=== PATIENT | female | born 1980 | race Caucasian/White ===

== ENCOUNTER → 2018-08-15 | Outpatient (CLI) | payer MEDICAID | END | disposition home or self-care (01) | LOC: RAD 12:16 | DX: R76.11 Nonspecific reaction to tuberculin skin test without active tuberculosis (principal) | CPT/HCPCS: 71045 ==

== ENCOUNTER 2018-12-14 07:51 | Inpatient (IN) | payer MEDICAID ==
[2018-12-14 08:51] LABS: ADD MAN DIFF? NO
[2018-12-14 08:55] LABS: WHITE BLOOD COUNT 7.7 10^3/ul (4.8-10.8)
[2018-12-14 08:56] LABS: BASOPHILS % 0.5 % (0.0-2.0); EOSINOPHILS % 0.5 % (0.0-7.0); HEMATOCRIT 33.5 % (37.0-47.0); LYMPHOCYTES # 1.3 10^3/ul (0.8-2.9); LYMPHOCYTES % 17.2 % (15.0-51.0); MEAN CORPUSCULAR HEMOGLOBIN 31.7 pg (29.0-33.0); MEAN CORPUSCULAR HGB CONC 32.8 g/dl (32.0-37.0); MEAN CORPUSCULAR VOLUME 96.5 fl (82.0-101.0); MEAN PLATELET VOLUME 9.8 fl (7.4-10.4); MONOCYTE # 0.6 10^3/ul (0.3-0.9); MONOCYTES % 7.2 % (0.0-11.0); NEUTROPHIL # 5.6 10^3/ul (1.6-7.5); NEUTROPHILS % 73.3 % (39.0-77.0); PLATELET COUNT 199 10^3/UL (140-415); RED BLOOD COUNT 3.47 10^6/ul (4.20-5.40); RED CELL DISTRIBUTION WIDTH 12.7 % (11.5-14.5)
[2018-12-14 09:26] LABS: RUPTURE FETAL MEMBRANES POSITIVE (NEGATIVE)
[2018-12-14 09:34] LABS: ADD UMIC YES; UR ASCORBIC ACID NEGATIVE (NEGATIVE); UR BILIRUBIN (Dip) NEGATIVE (NEGATIVE); UR BLOOD (Dip) NEGATIVE (NEGATIVE); UR CLARITY CLEAR (CLEAR); UR COLOR YELLOW (YELLOW); UR GLUCOSE (Dip) NEGATIVE (NEGATIVE); UR KETONES (Dip) NEGATIVE (NEGATIVE); UR LEUKOCYTE ESTERASE (Dip) TRACE Leu/ul (NEGATIVE); UR NITRITE (Dip) NEGATIVE (NEGATIVE); UR RBC 0 /HPF (0-5); UR SPECIFIC GRAVITY (Dip) 1.009 (1.003-1.030); UR TOTAL PROTEIN (Dip) NEGATIVE (NEGATIVE); UR UROBILINOGEN (Dip) NEGATIVE (NEGATIVE); UR WBC 3 /HPF (0-5)
[2018-12-14] MEDS ORDERED: MAGNESIUM SULFATE 4 GM/100 ML 100 ML (11:12)
[2018-12-14] MEDS: MAGNESIUM SULFATE 4 GM/100 ML 100 ML IV (11:34)
[2018-12-14] MEDS: LACTATED RINGER'S 1,000 ML IV (11:35)
[2018-12-14] MEDS: AMPICILLIN 2 GM/NS (PMX) 100 ML IV (11:54)
[2018-12-14] MEDS: MAGNESIUM SULFATE 20 GM/500 ML 500 ML IV ×2 (12:02→22:07)
[2018-12-14 12:21] LABS: ALANINE AMINOTRANSFERASE 32 IU/L (13-69); ALBUMIN 3.3 g/dl (3.3-4.9); ALBUMIN/GLOBULIN RATIO 1.06; ALKALINE PHOSPHATASE 143 IU/L (42-121); ANION GAP 3 (5-13); ASPARTATE AMINO TRANSFERASE 33 IU/L (15-46); BILIRUBIN,INDIRECT 0.5 mg/dl (0-1.1); BILIRUBIN,TOTAL 0.5 mg/dl (0.2-1.3); BLOOD UREA NITROGEN 8 mg/dl (7-20); CALCIUM 8.6 mg/dl (8.4-10.2); CARBON DIOXIDE 27 mmol/L (21-31); CHLORIDE 105 mmol/L (97-110); CREATININE 0.46 mg/dl (0.44-1.00); Estimated GFR > 60 mL/min (>60); GLUCOSE 83 mg/dl (70-220); POTASSIUM 4.2 mmol/L (3.5-5.1); SODIUM 135 mmol/L (135-144); TOTAL PROTEIN 6.4 g/dl (6.1-8.1)
[2018-12-14 12:57] LABS: MAGNESIUM 1.9 mg/dl (1.7-2.5)
[2018-12-14] MEDS: BETAMET NA PHOS/AC(6 MG/ML) 2 ML INJ SYG IM (13:00)
[2018-12-14] MEDS: ERYTHROMYCIN LACTOBIONATE 500 MG in SOD CHLORIDE 0.9% 100 ML IVPB ×2 (13:01→18:52)
[2018-12-14] MEDS: TERBUTALINE 1 MG/ML INJ SC ×2 (14:43→16:51)
[2018-12-14] MEDS: AMPICILLIN 1 GM/NS (PMX) 50 ML IV ×2 (16:05→20:14)
[2018-12-14] MEDS: DEXTROSE 5%-LR 1,000 ML IV (17:47)
[2018-12-14 18:39] LABS: MAGNESIUM 4.9 mg/dl (1.7-2.5)
[2018-12-15] MEDS: AMPICILLIN 1 GM/NS (PMX) 50 ML IV ×7 (00:10→22:55)
[2018-12-15] MEDS: ERYTHROMYCIN LACTOBIONATE 500 MG in SOD CHLORIDE 0.9% 100 ML IVPB ×4 (00:51→19:47)
[2018-12-15 01:35] LABS: MAGNESIUM 5.7 mg/dl (1.7-2.5)
[2018-12-15] MEDS: LACTATED RINGER'S 1,000 ML IV ×2 (04:13→19:00)
[2018-12-15] MEDS ORDERED: FAMOTIDINE 20 MG INJ (06:50)
[2018-12-15 07:30] LABS: MAGNESIUM 5.8 mg/dl (1.7-2.5)
[2018-12-15] MEDS: MAGNESIUM SULFATE 20 GM/500 ML 500 ML IV ×2 (09:12→18:50)
[2018-12-15 12:46] LABS: MAGNESIUM 5.9 mg/dl (1.7-2.5)
[2018-12-15] MEDS: BETAMET NA PHOS/AC(6 MG/ML) 2 ML INJ SYG IM (15:46)
[2018-12-15 18:39] LABS: MAGNESIUM 5.6 mg/dl (1.7-2.5)
[2018-12-15] MEDS ORDERED: SENNA/DOCUSATE NA (8.6MG/50MG) TAB ×2 (18:42→18:43)
[2018-12-15] MEDS: MAGNESIUM HYDROXIDE 30ML CUP PO ×2 (18:44→21:00)
[2018-12-15] MEDS: SENNA TAB PO ×2 (21:00)
[2018-12-16] MEDS: ERYTHROMYCIN LACTOBIONATE 500 MG in SOD CHLORIDE 0.9% 100 ML IVPB ×4 (00:02→18:24)
[2018-12-16] MEDS: AMPICILLIN 1 GM/NS (PMX) 50 ML IV ×6 (03:23→23:34)
[2018-12-16] MEDS: LACTATED RINGER'S 1,000 ML IV (03:23)
[2018-12-16] MEDS: MAGNESIUM SULFATE 20 GM/500 ML 500 ML IV ×2 (05:58→16:13)
[2018-12-16] MEDS: MAGNESIUM HYDROXIDE 30ML CUP PO ×2 (09:26→23:34)
[2018-12-16] MEDS: SENNA TAB PO ×2 (10:35→23:48)
[2018-12-16 13:02] LABS: MAGNESIUM 5.6 mg/dl (1.7-2.5)
[2018-12-16 18:51] LABS: MAGNESIUM 5.8 mg/dl (1.7-2.5)
[2018-12-16] MEDS: NIFEdipine 10 MG CAP PO (23:48)
[2018-12-17] MEDS: ERYTHROMYCIN LACTOBIONATE 500 MG in SOD CHLORIDE 0.9% 100 ML IVPB ×5 (00:09→23:42)
[2018-12-17] MEDS: LACTATED RINGER'S 1,000 ML IV (00:51)
[2018-12-17] MEDS: AMPICILLIN 1 GM/NS (PMX) 50 ML IV ×5 (03:50→21:13)
[2018-12-17] MEDS: NIFEdipine 10 MG CAP PO ×5 (06:08→23:45)
[2018-12-17] MEDS: MAGNESIUM HYDROXIDE 30ML CUP PO ×2 (08:38→21:15)
[2018-12-17] MEDS: SENNA TAB PO ×2 (12:32→21:15)
[2018-12-17 13:01] LABS: MAGNESIUM 2.4 mg/dl (1.7-2.5)
[2018-12-18] MEDS: AMPICILLIN 1 GM/NS (PMX) 50 ML IV ×6 (01:06→21:21)
[2018-12-18] MEDS: LACTATED RINGER'S 1,000 ML IV ×3 (01:06→16:39)
[2018-12-18] MEDS: DEXTROSE 5%-LR 1,000 ML IV (02:45)
[2018-12-18] MEDS: NIFEdipine 10 MG CAP PO ×3 (06:22→18:14)
[2018-12-18] MEDS: ERYTHROMYCIN LACTOBIONATE 500 MG in SOD CHLORIDE 0.9% 100 ML IVPB ×3 (06:41→18:13)
[2018-12-18] MEDS: MAGNESIUM HYDROXIDE 30ML CUP PO ×2 (09:53→21:21)
[2018-12-18] MEDS: SENNA TAB PO ×2 (10:12→21:21)
[2018-12-19] MEDS: NIFEdipine 10 MG CAP PO ×4 (00:14→18:05)
[2018-12-19] MEDS: ERYTHROMYCIN LACTOBIONATE 500 MG in SOD CHLORIDE 0.9% 100 ML IVPB ×4 (00:19→18:04)
[2018-12-19] MEDS: AMPICILLIN 1 GM/NS (PMX) 50 ML IV ×6 (01:28→21:51)
[2018-12-19] MEDS: DEXTROSE 5%-LR 1,000 ML IV (02:45)
[2018-12-19] MEDS: MAGNESIUM HYDROXIDE 30ML CUP PO ×2 (11:01→21:51)
[2018-12-19] MEDS: SENNA TAB PO ×2 (11:07→21:51)
[2018-12-19] MEDS: LACTATED RINGER'S 1,000 ML IV ×3 (17:00→19:00)
[2018-12-20] MEDS: ERYTHROMYCIN LACTOBIONATE 500 MG in SOD CHLORIDE 0.9% 100 ML IVPB ×4 (00:01→17:46)
[2018-12-20] MEDS: NIFEdipine 10 MG CAP PO ×4 (00:01→17:46)
[2018-12-20] MEDS: AMPICILLIN 1 GM/NS (PMX) 50 ML IV ×7 (03:00→21:05)
[2018-12-20] MEDS: LACTATED RINGER'S 1,000 ML IV ×2 (04:41→15:13)
[2018-12-20] MEDS: MAGNESIUM HYDROXIDE 30ML CUP PO ×2 (08:39→21:05)
[2018-12-20] MEDS: SENNA TAB PO ×2 (08:39→21:05)
[2018-12-20] MEDS: DEXTROSE 5%-LR 1,000 ML IV (11:49)
[2018-12-21] MEDS: NIFEdipine 10 MG CAP PO ×4 (00:26→18:43)
[2018-12-21] MEDS: AZITHROMYCIN 500MG/NS (PMX) 250 ML IV (00:27)
[2018-12-21] MEDS: LACTATED RINGER'S 1,000 ML IV ×3 (01:30→14:17)
[2018-12-21] MEDS: AMPICILLIN 1 GM/NS (PMX) 50 ML IV ×2 (01:41→05:55)
[2018-12-21 06:40] LABS: ADD MAN DIFF? NO
[2018-12-21 06:54] LABS: BASOPHILS % 0.4 % (0.0-2.0); EOSINOPHILS # 0.1 10^3/ul (0.0-0.5); EOSINOPHILS % 1.1 % (0.0-7.0); HEMATOCRIT 33.8 % (37.0-47.0); HEMOGLOBIN 11.6 g/dl (12.0-16.0); LYMPHOCYTES # 1.4 10^3/ul (0.8-2.9); LYMPHOCYTES % 14.6 % (15.0-51.0); MEAN CORPUSCULAR HEMOGLOBIN 31.3 pg (29.0-33.0); MEAN CORPUSCULAR HGB CONC 34.3 g/dl (32.0-37.0); MEAN CORPUSCULAR VOLUME 91.1 fl (82.0-101.0); MEAN PLATELET VOLUME 9.4 fl (7.4-10.4); MONOCYTE # 0.7 10^3/ul (0.3-0.9); MONOCYTES % 7.5 % (0.0-11.0); NEUTROPHIL # 7.1 10^3/ul (1.6-7.5); NEUTROPHILS % 74.9 % (39.0-77.0); PLATELET COUNT 175 10^3/UL (140-415); RED BLOOD COUNT 3.71 10^6/ul (4.20-5.40); RED CELL DISTRIBUTION WIDTH 11.9 % (11.5-14.5)
[2018-12-21 06:54] LABS: WHITE BLOOD COUNT 9.4 10^3/ul (4.8-10.8)
[2018-12-21 07:32] LABS: C-REACTIVE PROTEIN 2.4 mg/dl (0.0-0.9)
[2018-12-21] MEDS: PRENATAL VITAMIN PO (10:12)
[2018-12-21] MEDS: SENNA TAB PO ×2 (10:13→20:53)
[2018-12-21] MEDS: MAGNESIUM HYDROXIDE 30ML CUP PO ×2 (10:13→20:52)
[2018-12-22] MEDS: NIFEdipine 10 MG CAP PO ×4 (00:04→18:53)
[2018-12-22] MEDS: LACTATED RINGER'S 1,000 ML IV ×2 (00:05→08:08)
[2018-12-22] MEDS: SENNA TAB PO ×2 (09:00→21:01)
[2018-12-22] MEDS: MAGNESIUM HYDROXIDE 30ML CUP PO ×2 (09:12→21:01)
[2018-12-22] MEDS: PRENATAL VITAMIN PO (09:12)
[2018-12-23] MEDS: LACTATED RINGER'S 1,000 ML IV ×2 (00:10→08:56)
[2018-12-23] MEDS: NIFEdipine 10 MG CAP PO ×3 (00:24→11:58)
[2018-12-23] MEDS ORDERED: SUCCINYLCHOLINE CHLORIDE 100 MG/5 ML SYG IV (07:00)
[2018-12-23] MEDS: MAGNESIUM HYDROXIDE 30ML CUP PO (08:49)
[2018-12-23] MEDS: PRENATAL VITAMIN PO (08:49)
[2018-12-23] MEDS: SENNA TAB PO (08:49)
[2018-12-23] MEDS ORDERED: OXYTOCIN 30 UNITS/LR 500 ML IV ×2 (16:30→21:00)
[2018-12-23] MEDS ORDERED: CEFAZOLIN 2 GM/50 ML (PMX) 50 ML IVPB (16:30)
[2018-12-23] MEDS ORDERED: MISOPROSTOL 200 MCG TAB PR ×2 (16:30→21:00)
[2018-12-23] MEDS ORDERED: METHYLERGONOVINE 0.2 MG INJ IM ×2 (16:30→21:00)
[2018-12-23] MEDS ORDERED: CARBOPROST 250 MCG INJ IM ×2 (16:30→21:00)
[2018-12-23 16:50] LABS: ADD MAN DIFF? NO
[2018-12-23 16:52] LABS: BASOPHILS % 0.4 % (0.0-2.0); EOSINOPHILS # 0.1 10^3/ul (0.0-0.5); EOSINOPHILS % 0.8 % (0.0-7.0); HEMATOCRIT 34.5 % (37.0-47.0); HEMOGLOBIN 11.7 g/dl (12.0-16.0); LYMPHOCYTES # 1.6 10^3/ul (0.8-2.9); MEAN CORPUSCULAR HGB CONC 33.9 g/dl (32.0-37.0); MEAN CORPUSCULAR VOLUME 91.3 fl (82.0-101.0); MEAN PLATELET VOLUME 9.7 fl (7.4-10.4); MONOCYTE # 0.8 10^3/ul (0.3-0.9); MONOCYTES % 7.4 % (0.0-11.0); NEUTROPHIL # 7.5 10^3/ul (1.6-7.5); NEUTROPHILS % 74.1 % (39.0-77.0); PLATELET COUNT 199 10^3/UL (140-415); RED BLOOD COUNT 3.78 10^6/ul (4.20-5.40); RED CELL DISTRIBUTION WIDTH 12.1 % (11.5-14.5)
[2018-12-23 16:52] LABS: WHITE BLOOD COUNT 10.1 10^3/ul (4.8-10.8)
[2018-12-23 17:29] LABS: INR 0.88; PT RATIO 0.9
[2018-12-23 17:30] LABS: PARTIAL THROMBOPLASTIN TIME 26.2 Sec (23.0-35.0)
[2018-12-23 17:41] LABS: HEPATITIS B SURFACE ANTIGEN NEGATIVE (NEGATIVE)
[2018-12-23] MEDS ORDERED: ROCURONIUM 50 MG INJ (18:08)
[2018-12-23] MEDS ORDERED: PROPOFOL 20 ML (18:08)
[2018-12-23] MEDS ORDERED: CEFAZOLIN 1 GM INJ (18:08)
[2018-12-23] MEDS ORDERED: MIDAZOLAM 1 MG/ML 2 ML INJ (18:09)
[2018-12-23] MEDS ORDERED: FENTAnyl 50 MCG/ML VIAL (18:09)
[2018-12-23] MEDS ORDERED: ONDANSETRON 4 MG INJ (18:10)
[2018-12-23] MEDS ORDERED: NEOSTIGMINE 3 MG/3 ML SYRINGE (18:10)
[2018-12-23] MEDS ORDERED: GLYCOPYRROLATE 0.4 MG INJ (18:10)
[2018-12-23] MEDS ORDERED: OXYTOCIN 10 UNIT INJ (18:15)
[2018-12-23] MEDS ORDERED: SUGAMMADEX SODIUM 200 MG/2 ML VIAL IV (18:33)
[2018-12-23] MEDS ORDERED: DEXAMETHASONE 4 MG/ML 1 ML INJ (18:44)
[2018-12-23] MEDS ORDERED: HYDROmorphONE 0.5 MG/0.5 ML SYG IV ×2 (19:00)
[2018-12-23] MEDS ORDERED: MEPERIDINE 25 MG INJ IV (19:00)
[2018-12-23] MEDS ORDERED: TRIMETHOBENZAMIDE 100 MG/ML VIAL IM (19:00)
[2018-12-23] MEDS ORDERED: FENTAnyl 50 MCG/ML VIAL IV ×3 (19:00)
[2018-12-23] MEDS ORDERED: NALOXONE (0.4 MG/ML) INJ IV (19:00)
[2018-12-23] MEDS ORDERED: ONDANSETRON 4 MG INJ IV ×2 (19:00)
[2018-12-23] MEDS ORDERED: ALBUTEROL 0.083% (NEB) 2.5 MG/3 ML AMP HHN (19:00)
[2018-12-23] MEDS ORDERED: HYDROmorphONE 1 MG/5 ML IV SYRINGE IV ×3 (19:00)
[2018-12-23] MEDS ORDERED: DIPHENHYDRAMINE 50 MG INJ IV ×2 (19:00)
[2018-12-23] MEDS ORDERED: LABETALOL HCL 20MG INJ IV (19:00)
[2018-12-23] MEDS ORDERED: ZOLPIDEM 5 MG TAB PO (19:00)
[2018-12-23] MEDS ORDERED: OXYCODONE/ACETAMINOPHEN (5/325) TAB PO (19:00)
[2018-12-23] MEDS: HYDROmorphONE 0.2 MG/ML PCA IV (19:46)
[2018-12-23] MEDS: OXYTOCIN 30 UNITS/LR 500 ML IV (20:12)
[2018-12-23] MEDS ORDERED: NACL 0.9% 3 ML SYG IV (21:00)
[2018-12-23] MEDS ORDERED: LANOLIN HPA 1 PKT TOP (21:00)
[2018-12-23] MEDS: TRIMETHOBENZAMIDE 100 MG/ML VIAL IM (21:30)
[2018-12-23] MEDS: EPHEDrine 25 MG/5 ML SYG IV (21:30)
[2018-12-23] MEDS: IPRATROPIUM (NEB) 0.5 MG/2.5 ML AMP HHN (21:30)
[2018-12-23] MEDS: hydrALAzine 20 MG INJ IV (21:31)
[2018-12-23] MEDS: KETOROLAC 30 MG INJ IV (21:41)
[2018-12-24] MEDS: OXYTOCIN 30 UNITS/LR 500 ML IV (00:26)
[2018-12-24] MEDS: HYDROmorphONE 0.2 MG/ML PCA IV (04:31)
[2018-12-24] MEDS: LACTATED RINGER'S 1,000 ML IV (09:49)
[2018-12-24 11:51] LABS: ADD MAN DIFF? NO
[2018-12-24 11:52] LABS: BASOPHILS % 0.2 % (0.0-2.0); EOSINOPHILS % 0.1 % (0.0-7.0); HEMATOCRIT 33.7 % (37.0-47.0); HEMOGLOBIN 11.5 g/dl (12.0-16.0); LYMPHOCYTES # 1.1 10^3/ul (0.8-2.9); LYMPHOCYTES % 6.3 % (15.0-51.0); MEAN CORPUSCULAR HEMOGLOBIN 31.4 pg (29.0-33.0); MEAN CORPUSCULAR HGB CONC 34.1 g/dl (32.0-37.0); MEAN CORPUSCULAR VOLUME 92.1 fl (82.0-101.0); MEAN PLATELET VOLUME 9.7 fl (7.4-10.4); MONOCYTE # 0.7 10^3/ul (0.3-0.9); MONOCYTES % 4.1 % (0.0-11.0); NEUTROPHIL # 15.1 10^3/ul (1.6-7.5); NEUTROPHILS % 88.9 % (39.0-77.0); PLATELET COUNT 172 10^3/UL (140-415); RED BLOOD COUNT 3.66 10^6/ul (4.20-5.40)
[2018-12-24 11:52] LABS: WHITE BLOOD COUNT 16.9 10^3/ul (4.8-10.8)
[2018-12-24] MEDS: IBUPROFEN 600 MG TAB PO ×4 (12:00→23:50)
[2018-12-24 15:02] LABS: RAPID PLASMA REAGIN NONREACTIVE (NR)
[2018-12-24] MEDS: KETOROLAC 30 MG INJ IV (15:07)
[2018-12-24] MEDS: OXYCODONE/ACETAMINOPHEN (5/325) TAB PO (21:52)
[2018-12-25 06:46] LABS: ADD MAN DIFF? NO
[2018-12-25] MEDS: IBUPROFEN 600 MG TAB PO ×3 (06:48→17:15)
[2018-12-25 06:55] LABS: WHITE BLOOD COUNT 20.3 10^3/ul (4.8-10.8)
[2018-12-25 06:55] LABS: BASOPHILS % 0.1 % (0.0-2.0); HEMATOCRIT 32.5 % (37.0-47.0); HEMOGLOBIN 11.1 g/dl (12.0-16.0); LYMPHOCYTES # 0.7 10^3/ul (0.8-2.9); LYMPHOCYTES % 3.5 % (15.0-51.0); MEAN CORPUSCULAR HEMOGLOBIN 31.6 pg (29.0-33.0); MEAN CORPUSCULAR HGB CONC 34.2 g/dl (32.0-37.0); MEAN CORPUSCULAR VOLUME 92.6 fl (82.0-101.0); MEAN PLATELET VOLUME 9.9 fl (7.4-10.4); MONOCYTE # 0.7 10^3/ul (0.3-0.9); MONOCYTES % 3.3 % (0.0-11.0); NEUTROPHIL # 18.6 10^3/ul (1.6-7.5); PLATELET COUNT 176 10^3/UL (140-415); RED BLOOD COUNT 3.51 10^6/ul (4.20-5.40); RED CELL DISTRIBUTION WIDTH 12.4 % (11.5-14.5)
[2018-12-25] MEDS: SENNA/DOCUSATE NA (8.6MG/50MG) TAB PO ×2 (08:59→21:16)
[2018-12-25] MEDS: INSULIN ASPART [NOVOLOG] 3 ML PEN SC (15:03)
[2018-12-25] MEDS: NA PHOSPHATE/BIPHOS 133 ML ENEMA PR (17:22)
[2018-12-26] MEDS: IBUPROFEN 600 MG TAB PO ×4 (00:19→18:00)
[2018-12-26] MEDS ORDERED: DIPHTH/TET/ACEL PERTUSS (ADULT) 0.5 ML VIAL IM* (09:00)
[2018-12-26] MEDS ORDERED: MEASLES,MUMPS,RUBELLA VACCINE INJ SC* (09:00)
[2018-12-26] MEDS: SENNA/DOCUSATE NA (8.6MG/50MG) TAB PO ×2 (09:00→21:00)
[2018-12-26] MEDS: ACCU-CHEK XX ×3 (10:05→20:05)
[2018-12-26] MEDS: ONDANSETRON 4 MG INJ IV (16:58)
[2018-12-26] MEDS: LACTATED RINGER'S 1,000 ML IV (16:59)
[2018-12-26 18:48] LABS: ADD MAN DIFF? NO
[2018-12-26 18:50] LABS: BASOPHILS % 0.1 % (0.0-2.0); EOSINOPHILS % 0.1 % (0.0-7.0); HEMATOCRIT 35.6 % (37.0-47.0); HEMOGLOBIN 11.9 g/dl (12.0-16.0); LYMPHOCYTES # 0.7 10^3/ul (0.8-2.9); LYMPHOCYTES % 4.3 % (15.0-51.0); MEAN CORPUSCULAR HEMOGLOBIN 30.6 pg (29.0-33.0); MEAN CORPUSCULAR HGB CONC 33.4 g/dl (32.0-37.0); MEAN CORPUSCULAR VOLUME 91.5 fl (82.0-101.0); MEAN PLATELET VOLUME 9.7 fl (7.4-10.4); MONOCYTE # 0.5 10^3/ul (0.3-0.9); MONOCYTES % 3.4 % (0.0-11.0); NEUTROPHILS % 90.7 % (39.0-77.0); PLATELET COUNT 269 10^3/UL (140-415); RED BLOOD COUNT 3.89 10^6/ul (4.20-5.40); RED CELL DISTRIBUTION WIDTH 12.7 % (11.5-14.5)
[2018-12-26 18:50] LABS: WHITE BLOOD COUNT 15.4 10^3/ul (4.8-10.8)
[2018-12-27] MEDS: LACTATED RINGER'S 1,000 ML IV ×3 (00:31→17:01)
[2018-12-27] MEDS: HYDROmorphONE 1 MG/ML SYG IV ×2 (02:35→12:46)
[2018-12-27] MEDS: IBUPROFEN 600 MG TAB PO ×3 (06:00→12:00)
[2018-12-27] MEDS: ACCU-CHEK XX ×4 (06:00→20:05)
[2018-12-27] MEDS: SENNA/DOCUSATE NA (8.6MG/50MG) TAB PO ×2 (09:00→21:00)
[2018-12-27] MEDS: ONDANSETRON 4 MG INJ IV (09:39)
[2018-12-27] MEDS: IOHEXOL 300MG/ML 150 ML BTL (15:09)
[2018-12-27] MEDS: KETOROLAC 30 MG INJ IV ×2 (16:57→22:29)
[2018-12-27] MEDS: METOCLOPRAMIDE 10 MG INJ IV (17:17)
[2018-12-27] MEDS: NA PHOSPHATE/BIPHOS 133 ML ENEMA PR (23:04)
[2018-12-28] MEDS: METOCLOPRAMIDE 10 MG INJ IV ×5 (01:09→23:59)
[2018-12-28] MEDS: LACTATED RINGER'S 1,000 ML IV ×3 (01:15→17:01)
[2018-12-28] MEDS: KETOROLAC 30 MG INJ IV ×3 (04:34→18:16)
[2018-12-28] MEDS: ACCU-CHEK XX (06:00)
[2018-12-28 07:17] LABS: ADD MAN DIFF? NO
[2018-12-28 07:29] LABS: BASOPHILS % 0.3 % (0.0-2.0); EOSINOPHILS % 0.1 % (0.0-7.0); HEMATOCRIT 30.7 % (37.0-47.0); HEMOGLOBIN 10.1 g/dl (12.0-16.0); LYMPHOCYTES # 0.6 10^3/ul (0.8-2.9); LYMPHOCYTES % 8.1 % (15.0-51.0); MEAN CORPUSCULAR HGB CONC 32.9 g/dl (32.0-37.0); MEAN CORPUSCULAR VOLUME 94.2 fl (82.0-101.0); MONOCYTE # 0.5 10^3/ul (0.3-0.9); NEUTROPHIL # 6.4 10^3/ul (1.6-7.5); NEUTROPHILS % 84.2 % (39.0-77.0); PLATELET COUNT 301 10^3/UL (140-415); RED BLOOD COUNT 3.26 10^6/ul (4.20-5.40); RED CELL DISTRIBUTION WIDTH 12.7 % (11.5-14.5)
[2018-12-28 07:29] LABS: WHITE BLOOD COUNT 7.6 10^3/ul (4.8-10.8)
[2018-12-28 07:49] LABS: HEMOGLOBIN A1C 5.5 % (0-5.9)
[2018-12-28 07:50] LABS: MAGNESIUM 2.1 mg/dl (1.7-2.5)
[2018-12-28 07:50] LABS: PHOSPHORUS 4.2 mg/dl (2.5-4.9)
[2018-12-28 07:54] LABS: ANION GAP 6 (5-13); BLOOD UREA NITROGEN 22 mg/dl (7-20); CALCIUM 8.6 mg/dl (8.4-10.2); CARBON DIOXIDE 34 mmol/L (21-31); CHLORIDE 99 mmol/L (97-110); CREATININE 0.56 mg/dl (0.44-1.00); Estimated GFR > 60 mL/min (>60); GLUCOSE 130 mg/dl (70-220); POTASSIUM 3.3 mmol/L (3.5-5.1); SODIUM 139 mmol/L (135-144)
[2018-12-28] MEDS: SENNA/DOCUSATE NA (8.6MG/50MG) TAB PO ×2 (08:51→22:02)
[2018-12-28] MEDS ORDERED: POTASSIUM CHLORIDE 20 MEQ POWDER FOR ORAL SOLN PO (10:00)
[2018-12-28] MEDS ORDERED: POLYETHYLENE GLYCOL 17 GM PACKET PO (10:00)
[2018-12-28] MEDS ORDERED: PETROLATUM 5 GM OINT TOP (12:44)
[2018-12-29] MEDS: KETOROLAC 30 MG INJ IV ×4 (01:00→20:52)
[2018-12-29] MEDS: LACTATED RINGER'S 1,000 ML IV ×3 (01:00→19:57)
[2018-12-29] MEDS: METOCLOPRAMIDE 10 MG INJ IV ×4 (06:03→23:36)
[2018-12-29] MEDS: SENNA/DOCUSATE NA (8.6MG/50MG) TAB PO ×2 (08:21→23:36)
[2018-12-30] MEDS: LACTATED RINGER'S 1,000 ML IV ×3 (04:03→21:57)
[2018-12-30] MEDS: KETOROLAC 30 MG INJ IV ×3 (04:35→18:18)
[2018-12-30] MEDS: METOCLOPRAMIDE 10 MG INJ IV ×3 (05:31→17:33)
[2018-12-30] MEDS: SENNA/DOCUSATE NA (8.6MG/50MG) TAB PO ×2 (08:53→21:00)
[2018-12-30] MEDS: IOHEXOL 14.3 MG(I)/ML (ADULT) BTL PO ×3 (15:30→18:00)
[2018-12-30] MEDS ORDERED: IOHEXOL 14.3 MG(I)/ML (ADULT) BTL PO (15:30)
[2018-12-30] MEDS: IBUPROFEN 600 MG TAB PO ×2 (17:33)
[2018-12-30] MEDS ORDERED: ACETAMINOPHEN 1000MG/100ML IV 100 ML IVPB (18:00)
[2018-12-30] MEDS: IOHEXOL 300MG/ML 150 ML BTL (18:06)
[2018-12-30] MEDS: SOD CHLORIDE 0.9% 100 ML (18:06)
[2018-12-30 19:10] LABS: ADD MAN DIFF? NO
[2018-12-30 19:13] LABS: WHITE BLOOD COUNT 7.4 10^3/ul (4.8-10.8)
[2018-12-30 19:13] LABS: ABNORMAL IP MESSAGE 1; BASOPHILS % 0.1 % (0.0-2.0); EOSINOPHILS % 0.3 % (0.0-7.0); HEMATOCRIT 28.7 % (37.0-47.0); HEMOGLOBIN 9.2 g/dl (12.0-16.0); LYMPHOCYTES # 0.6 10^3/ul (0.8-2.9); LYMPHOCYTES % 7.4 % (15.0-51.0); MEAN CORPUSCULAR HEMOGLOBIN 30.1 pg (29.0-33.0); MEAN CORPUSCULAR HGB CONC 32.1 g/dl (32.0-37.0); MEAN CORPUSCULAR VOLUME 93.8 fl (82.0-101.0); MEAN PLATELET VOLUME 9.3 fl (7.4-10.4); MONOCYTE # 0.4 10^3/ul (0.3-0.9); MONOCYTES % 5.4 % (0.0-11.0); NEUTROPHIL # 6.2 10^3/ul (1.6-7.5); NEUTROPHILS % 82.9 % (39.0-77.0); PLATELET COUNT 305 10^3/UL (140-415); RED BLOOD COUNT 3.06 10^6/ul (4.20-5.40); RED CELL DISTRIBUTION WIDTH 13.2 % (11.5-14.5)
[2018-12-30 19:31] LABS: ALANINE AMINOTRANSFERASE 28 IU/L (13-69); ALBUMIN 2.4 g/dl (3.3-4.9); ALBUMIN/GLOBULIN RATIO 0.82; ALKALINE PHOSPHATASE 93 IU/L (42-121); ANION GAP 7 (5-13); ASPARTATE AMINO TRANSFERASE 17 IU/L (15-46); BILIRUBIN,INDIRECT 0.6 mg/dl (0-1.1); BILIRUBIN,TOTAL 0.6 mg/dl (0.2-1.3); BLOOD UREA NITROGEN 7 mg/dl (7-20); CALCIUM 7.9 mg/dl (8.4-10.2); CARBON DIOXIDE 26 mmol/L (21-31); CHLORIDE 101 mmol/L (97-110); CREATININE 0.47 mg/dl (0.44-1.00); Estimated GFR > 60 mL/min (>60); GLUCOSE 99 mg/dl (70-220); POTASSIUM 3.1 mmol/L (3.5-5.1); SODIUM 134 mmol/L (135-144); TOTAL PROTEIN 5.3 g/dl (6.1-8.1)
[2018-12-31] MEDS: KETOROLAC 30 MG INJ IV ×4 (00:39→23:35)
[2018-12-31] MEDS: METOCLOPRAMIDE 10 MG INJ IV ×5 (00:39→23:36)
[2018-12-31] MEDS: D5W-0.45 NACL + KCL 20 MEQ 1,000 ML IV ×2 (03:31→15:35)
[2018-12-31] MEDS: LACTATED RINGER'S 1,000 ML IV ×3 (04:00→20:00)
[2018-12-31] MEDS: IBUPROFEN 600 MG TAB PO ×3 (06:00→18:00)
[2018-12-31] MEDS: SENNA/DOCUSATE NA (8.6MG/50MG) TAB PO ×2 (09:00→20:45)
[2018-12-31 09:17] LABS: POTASSIUM 3.2 mmol/L (3.5-5.1)
[2018-12-31 18:38] LABS: POTASSIUM 3.1 mmol/L (3.5-5.1)
[2018-12-31] MEDS: MAGNESIUM HYDROXIDE 30ML CUP PO (20:45)
[2018-12-31] MEDS ORDERED: MAGNESIUM HYDROXIDE 30ML CUP PO (21:00)
[2019-01-01] MEDS: D5W-0.45 NACL + KCL 20 MEQ 1,000 ML IV (00:54)
[2019-01-01] MEDS: LACTATED RINGER'S 1,000 ML IV (04:00)
[2019-01-01] MEDS: METOCLOPRAMIDE 10 MG INJ IV ×3 (05:40→20:50)
[2019-01-01] MEDS: IBUPROFEN 600 MG TAB PO ×4 (05:41)
[2019-01-01 08:40] LABS: ADD MAN DIFF? NO
[2019-01-01 08:46] LABS: BASOPHILS % 0.3 % (0.0-2.0); EOSINOPHILS % 0.3 % (0.0-7.0); LYMPHOCYTES % 10.3 % (15.0-51.0); MEAN CORPUSCULAR HEMOGLOBIN 30.6 pg (29.0-33.0); MEAN CORPUSCULAR HGB CONC 32.1 g/dl (32.0-37.0); MEAN CORPUSCULAR VOLUME 95.2 fl (82.0-101.0); MEAN PLATELET VOLUME 9.4 fl (7.4-10.4); MONOCYTE # 0.4 10^3/ul (0.3-0.9); MONOCYTES % 4.3 % (0.0-11.0); NEUTROPHIL # 7.6 10^3/ul (1.6-7.5); NEUTROPHILS % 80.9 % (39.0-77.0); PLATELET COUNT 351 10^3/UL (140-415); RED BLOOD COUNT 2.94 10^6/ul (4.20-5.40); RED CELL DISTRIBUTION WIDTH 13.2 % (11.5-14.5)
[2019-01-01 08:46] LABS: WHITE BLOOD COUNT 9.4 10^3/ul (4.8-10.8)
[2019-01-01] MEDS: MAGNESIUM HYDROXIDE 30ML CUP PO ×2 (08:49→21:00)
[2019-01-01] MEDS: SENNA/DOCUSATE NA (8.6MG/50MG) TAB PO ×2 (08:50→21:00)
[2019-01-01 09:04] LABS: POTASSIUM 3.4 mmol/L (3.5-5.1)
[2019-01-01 09:08] LABS: ANION GAP 6 (5-13); CARBON DIOXIDE 24 mmol/L (21-31); CHLORIDE 106 mmol/L (97-110); POTASSIUM 3.6 mmol/L (3.5-5.1); SODIUM 136 mmol/L (135-144)
[2019-01-01] MEDS: DEXTROSE 5%-0.45% NACL 1,000 ML IV ×2 (11:26→21:42)
[2019-01-01] MEDS: KETOROLAC 30 MG INJ IV ×2 (12:36→20:50)
[2019-01-01] MEDS: VANCOMYCIN 1 GM (PMX) 250 ML IVPB (21:33)
[2019-01-02] MEDS: CIPROFLOXACIN 400MG/D5W 200 ML IVPB ×2 (00:22→14:17)
[2019-01-02] MEDS: metroNIDAZOLE 500 MG/NS (PMX) 100 ML IVPB ×3 (01:52→17:27)
[2019-01-02] MEDS: IBUPROFEN 600 MG TAB PO ×4 (06:00→21:00)
[2019-01-02] MEDS: KETOROLAC 30 MG INJ IV ×2 (06:30→14:39)
[2019-01-02] MEDS: METOCLOPRAMIDE 10 MG INJ IV ×4 (06:31→22:11)
[2019-01-02] MEDS: MAGNESIUM HYDROXIDE 30ML CUP PO ×3 (09:00→21:00)
[2019-01-02] MEDS: SENNA/DOCUSATE NA (8.6MG/50MG) TAB PO ×2 (09:00→21:00)
[2019-01-02] MEDS: VANCOMYCIN 1 GM (PMX) 250 ML IVPB ×2 (11:13→23:17)
[2019-01-02] MEDS: DEXTROSE 5%-0.45% NACL 1,000 ML IV ×2 (17:00→17:16)
[2019-01-02] MEDS: MAGNESIUM HYDROXIDE 30ML CUP NGT (17:51)
[2019-01-02] MEDS: ACETAMINOPHEN 1000MG/100ML IV 100 ML IVPB (21:28)
[2019-01-03] MEDS: metroNIDAZOLE 500 MG/NS (PMX) 100 ML IVPB ×3 (01:25→15:25)
[2019-01-03] MEDS: CIPROFLOXACIN 400MG/D5W 200 ML IVPB ×4 (02:42→23:15)
[2019-01-03] MEDS: ACETAMINOPHEN 1000MG/100ML IV 100 ML IVPB ×3 (03:47→15:03)
[2019-01-03] MEDS: METOCLOPRAMIDE 10 MG INJ IV ×4 (05:03→18:43)
[2019-01-03] MEDS: KETOROLAC 30 MG INJ IV (05:12)
[2019-01-03] MEDS: IBUPROFEN 600 MG TAB PO ×4 (06:00→18:00)
[2019-01-03] MEDS: DEXTROSE 5%-0.45% NACL 1,000 ML IV (07:11)
[2019-01-03 08:56] LABS: ADD MAN DIFF? NO
[2019-01-03] MEDS: SENNA/DOCUSATE NA (8.6MG/50MG) TAB PO ×2 (09:00→21:00)
[2019-01-03] MEDS: MAGNESIUM HYDROXIDE 30ML CUP PO ×3 (09:00→21:00)
[2019-01-03 09:05] LABS: WHITE BLOOD COUNT 8.1 10^3/ul (4.8-10.8)
[2019-01-03 09:05] LABS: BASOPHILS % 0.2 % (0.0-2.0); EOSINOPHILS % 0.5 % (0.0-7.0); HEMATOCRIT 28.2 % (37.0-47.0); HEMOGLOBIN 9.1 g/dl (12.0-16.0); LYMPHOCYTES % 11.8 % (15.0-51.0); MEAN CORPUSCULAR HEMOGLOBIN 30.3 pg (29.0-33.0); MEAN CORPUSCULAR HGB CONC 32.3 g/dl (32.0-37.0); MEAN PLATELET VOLUME 9.4 fl (7.4-10.4); MONOCYTE # 0.5 10^3/ul (0.3-0.9); MONOCYTES % 6.2 % (0.0-11.0); NEUTROPHIL # 6.4 10^3/ul (1.6-7.5); NEUTROPHILS % 79.8 % (39.0-77.0); PLATELET COUNT 361 10^3/UL (140-415); RED CELL DISTRIBUTION WIDTH 13.5 % (11.5-14.5)
[2019-01-03] MEDS: VANCOMYCIN 1 GM (PMX) 250 ML IVPB ×2 (09:21→20:27)
[2019-01-03 09:29] LABS: ANION GAP 4 (5-13); CARBON DIOXIDE 29 mmol/L (21-31); CHLORIDE 106 mmol/L (97-110); SODIUM 139 mmol/L (135-144)
[2019-01-03 09:45] LABS: POTASSIUM 2.8 mmol/L (3.5-5.1)
[2019-01-03] MEDS: POTASSIUM CHLORIDE 100 ML IVPB ×2 (12:54→16:49)
[2019-01-04] MEDS: metroNIDAZOLE 500 MG/NS (PMX) 100 ML IVPB ×2 (00:29→10:26)
[2019-01-04] MEDS: MAGNESIUM HYDROXIDE 30ML CUP PO ×2 (00:30→21:00)
[2019-01-04] MEDS: SENNA/DOCUSATE NA (8.6MG/50MG) TAB PO ×2 (00:31→21:00)
[2019-01-04] MEDS: METOCLOPRAMIDE 10 MG INJ IV ×4 (00:33→17:10)
[2019-01-04] MEDS: IBUPROFEN 600 MG TAB PO ×4 (00:40→18:22)
[2019-01-04] MEDS: DEXTROSE 5%-0.45% NACL 1,000 ML IV (05:39)
[2019-01-04] MEDS: POTASSIUM CHLORIDE 100 ML IVPB ×2 (08:20→17:20)
[2019-01-04] MEDS: VANCOMYCIN 1 GM (PMX) 250 ML IVPB (11:48)
[2019-01-04] MEDS: CIPROFLOXACIN 400MG/D5W 200 ML IVPB (16:03)
[2019-01-04] MEDS ORDERED: ACETAMINOPHEN 325 MG TAB PO (18:30)
[2019-01-04] MEDS: IBUPROFEN 800 MG TAB PO (21:00)
[2019-01-04] MEDS: DOXYCYCLINE 100 MG TAB PO (21:00)
[2019-01-05] MEDS ORDERED: CIPROFLOXACIN 500 MG TAB PO (06:00)
[2019-01-05] MEDS ORDERED: metroNIDAZOLE 500 MG TAB PO (08:05)
== END 2019-01-04 21:15 | disposition home or self-care (01) | DRG 787 ==
LOC: OBT 07:51 → L-D 07:51 → OBT 10:45 → L-D 10:45 → PP1 12-23 22:29
PROVIDERS: Obstetrics & Gynecology
PROC: 10D00Z1 Extraction of Products of Conception, Low, Open Approach (ICD-10-PCS; principal; 2018-12-23)
DX: O60.13X0 Preterm labor second trimester with preterm delivery third trimester, not applicable or unspecified (principal); K56.7 Ileus, unspecified; O32.1XX0 Maternal care for breech presentation, not applicable or unspecified; O69.89X0 Labor and delivery complicated by other cord complications, not applicable or unspecified; O69.0XX0 Labor and delivery complicated by prolapse of cord, not applicable or unspecified; O99.62 Diseases of the digestive system complicating childbirth; O90.81 Anemia of the puerperium; O86.00 Infection of obstetric surgical wound, unspecified; E87.6 Hypokalemia; Z3A.33 33 weeks gestation of pregnancy; Z37.0 Single live birth
CPT/HCPCS: 74018; 74019; 74177; 74250; 76815; 76816; 76818; 80048; 80051; 80053; 81001; 82962; 83036; 83735; 84100; 84112; 84132; 85025; 85610; 85730; 86140; 86592; 86850; 86900; 86901; 87340; 93970; 99464